=== PATIENT | female | born 2000 | race Caucasian/White ===

== ENCOUNTER → 2020-11-05 | Outpatient (CLI) | payer OTHER ==
[~2020-11-05] VITALS: Ht 172.7 cm; Wt 178.0 kg
[~2020-11-05] MED LIST: ACETAMINOPHEN 500 MG TAB (TYLENOL) PO PRN; CASIRIVIMAB/IMDEVIMAB 1,200 MG in NS (IVPB) 250 ML IV ONE; EPINEPHrine INJECTION 1 MG/ML AMP IM PRN; ONDANSETRON 4 MG/2 ML (SDV) Z0FRAN IV PRN; diphenhydrAMINE 50 MG/ML INJ (BENADRYL) IV PRN
[2020-11-05 09:02] VITALS: BP 158/101
[2020-11-05 10:49] VITALS: BP 137/92
== END ==
LOC: EDSEX 09:00 → INFUSION 09:11
PROVIDERS: ATTEND Internal Medicine
DX: U07.1 COVID-19 (principal)